=== PATIENT | female | born 2000 | race Asian ===

== ENCOUNTER 2022-05-04 19:22 | Emergency (ER) | payer OTHER ==
[2022-05-04] MEDS ORDERED: Ondansetron ODT 4 MG TAB ONE (20:34)
[2022-05-04] MEDS ORDERED: Meclizine HCl 25 MG TAB ONE (20:47)
== END 2022-05-04 21:57 | disposition home or self-care (01) ==
LOC: CSHERS 19:22
DX: R42 Dizziness and giddiness (principal); Z20.822 Contact with and (suspected) exposure to COVID-19
CPT/HCPCS: 99283; Q0162